=== PATIENT | female | born 1985 | race Hispanic/Latino ===

== ENCOUNTER 2016-07-25 12:53 | Emergency (ER) | payer SELFPAY ==
[2016-07-25 13:31] VITALS: O2SAT 97
[2016-07-25] MEDS ORDERED: IBUPROFEN 200 MG TAB PO ONE (13:43)
--- NOTE | 2016-07-25 13:45 | ED.PDOC ---
History of Present Illness - General Chief Complaint: ENT Problem Stated Complaint: Sore throat Time Seen by Provider: 07/25/16 13:27 Source: patient - History of Present Illness Initial Comments: Patient reports sore throat since yesterday associated with mild cough and congestion. Patient denies fevers,chills, sick contacts, or shortness of breath Timing/Duration: yesterday Severity: moderate EENT Location: throat Prearrival Treatment: other - pt gargled with peroxide Improving Factors: nothing Worsening Factors: nothing Associated Symptoms: nasal congestion/drainage Allergies/Adverse Reactions: Allergies NO KNOWN ALLERGY Allergy (Verified 07/25/16 13:25) Home Medications: Ambulatory Orders Amoxicillin 875 mg PO TID #20 tab 07/25/16 Ibuprofen 800 mg PO Q8HR PRN #30 tab 07/25/16 Vit W/ Ferrous Fumara [] 1 tab PO DAILY 07/25/16 metFORMIN HCL [Glucophage] 500 mg PO BID 07/25/16 Review of Systems - Review of Systems Constitutional: Denies: chills, fever Respiratory: States: cough. Denies: short of breath Cardiology: Denies: chest pain, palpitations Gastrointestinal/Abdominal: Denies: nausea, vomiting Past Medical History (General) - Patient Medical History Hx Stroke: No Hx Congestive Heart Failure: No Hx Diabetes: Yes Hx Renal Disease: No - Vaccination History Hx Tetanus, Diphtheria Vaccination: Yes Hx Influenza Vaccination: No Hx Pneumococcal Vaccination: No - Social History Hx Tobacco Use: No Hx Substance Use: No - Female History Patient is a Female of Child Bearing Age (10 -59 yrs old): Yes Hx Last Menstrual Period: 01/14/13 Patient : - unknown Expected Date of Delivery:: 02/23/15 Family Medical History - Family History Mother Family History: No Known Age (years): 43 Living Status: Still Living Hx Family Stroke: Yes - g-pa Hx Family Diabetes: Yes - g-pa Hx Family Cancer: Yes - g-ma Father Family History: Unknown Living Status: Still Living Hx Family Stroke: Yes Physical Exam - Physical Exam General Appearance: Alert, Comfortable, No apparent distress Eye Exam: bilateral normal Nasal Exam: normal inspection Throat Exam: normal mouth inspection, pharynx swelling, tonsillar swelling Neck: lymphadenopathy (R), lymphadenopathy (L) Cardiovascular/Respiratory: regular rate, rhythm, no M/R/G, normal breath sounds , no respiratory distress Abdominal Exam: non-tender, no organomegaly Neurologic: alert, normal mood/affect, oriented x 3 Skin Exam: normal color, warm/dry Progress - Results/Orders Results/Orders: 07/25/16 13:35 STREP A SCREEN CULTURE Stat Laboratory Results - last 24 hr 07/25/16 13:35 Group A Strep DNA Negative Departure - Departure Clinical Impression: Pharyngitis Time of Disposition: 14:46 Disposition: Discharge to Home or Self Care Condition: Good Departure Forms: ED Discharge - Pt. Copy, Patient Portal Self Enrollment Instructions: DI for Pharyngitis/Tonsillopharyngitis -- Adult Diet: resume usual diet Referrals: Hiro Haq MD [Primary Care Provider] - 1-2 Weeks Prescriptions: Ibuprofen 800 mg PO Q8HR PRN #30 tab PRN Reason: Pain Amoxicillin 875 mg PO TID #20 tab Home Medications: Ambulatory Orders Amoxicillin 875 mg PO TID #20 tab 07/25/16 Ibuprofen 800 mg PO Q8HR PRN #30 tab 07/25/16 Vit W/ Ferrous Fumara [] 1 tab PO DAILY 07/25/16 metFORMIN HCL [Glucophage] 500 mg PO BID 07/25/16
[2016-07-25] MEDS ORDERED: AMOXICILLIN TRIHYDRATE 875 MG TAB PO ONE (14:48)
[2016-07-25] MEDS ORDERED: AMOXICILLIN 500 MG CAP ONE (14:52)
[2016-07-25] MEDS ORDERED: AMOXICILLIN 500 MG CAP PO ONE (14:52)
[2016-07-25 14:57] VITALS: BP 117/82; TEMP 98.3
== END 2016-07-25 14:58 | disposition home or self-care (01) ==
LOC: ER 12:53
DX: J06.0 Acute laryngopharyngitis (principal)

== ENCOUNTER → 2017-04-03 | Outpatient (CLI) | payer OTHER | END | disposition home or self-care (01) | LOC: LAB.O 11:40 | PROVIDERS: ATTEND Obstetrics & Gynecology | DX: J11.1 Influenza due to unidentified influenza virus with other respiratory manifestations (principal) ==

== ENCOUNTER 2017-07-28 09:29 | Emergency (ER) | payer OTHER ==
[2017-07-28 09:44] VITALS: BP 123/90; TEMP 97.3; O2SAT 97
[2017-07-28] MEDS ORDERED: traMADol HCL 50 MG TAB PO ONE (09:58)
--- NOTE | 2017-07-28 10:01 | ED.PDOC ---
History of Present Illness - General Chief Complaint: Back Pain or Injury Stated Complaint: low back pain Time Seen by Provider: 07/28/17 09:58 Source: patient Exam Limitations: no limitations - History of Present Illness Initial Comments: the patient is a 31-year-old female presenting to the emergency room secondary to low back pain in the L2-L3 area that does give intermittent shooting pains down her legs. no weakness. No sensory changes. Symptoms are not always present. She does have obvious muscle spasm bilaterally surrounding that area. No incontinence. She did have a approximately 9 weeks ago and did have an epidural for that . She did report a similar shooting sensation with placement of the epidural initially. It did go away. Symptoms started on her this time 4 days ago. She is not having any fever. She is not having any headache. No postural symptoms. There are no skin changes. There is no step-off. No tenderness to palpation of the spinous processes. No evidence of trauma. She does have some obvious muscle spasm as stated above. She has been holding her baby a lot of course recently. This does have increased strain to the low back. Severity: moderate Improving Factors: nothing Worsening Factors: nothing Associated Symptoms: denies symptoms Allergies/Adverse Reactions: Allergies NO KNOWN ALLERGY Allergy (Verified 07/25/16 13:25) Home Medications: Ambulatory Orders Vit W/ Ferrous Fumara [] 1 tab PO DAILY 07/25/16 Uueajxjjeqpzh-Wyej-Kyfuntyyyv [Fioricet] 1 ea PO Q8H PRN #21 tab 07/28/17 predniSONE [Prednisone] 20 mg PO DAILY #4 tab 07/28/17 Review of Systems - Review of Systems Constitutional: States: no symptoms reported EENTM: States: no symptoms reported Respiratory: States: no symptoms reported Cardiology: States: no symptoms reported Gastrointestinal/Abdominal: States: no symptoms reported Genitourinary: States: no symptoms reported Musculoskeletal: States: see HPI Skin: States: no symptoms reported Neurological: States: see HPI Endocrine: States: no symptoms reported All other Systems: No Change from Baseline Past Medical History (General) - Patient Medical History Hx Stroke: No Hx Congestive Heart Failure: No Hx Diabetes: No Hx Renal Disease: No - Vaccination History Hx Tetanus, Diphtheria Vaccination: Yes Hx Influenza Vaccination: Yes Hx Pneumococcal Vaccination: No - Social History Hx Tobacco Use: No Hx Substance Use: No - Female History Patient is a Female of Child Bearing Age (10 -59 yrs old): Yes - 9 weeks post- Hx Last Menstrual Period: 01/14/13 Patient : - unknown Expected Date of Delivery:: 02/23/15 Family Medical History - Family History Mother Family History: No Known Age (years): 43 Living Status: Still Living Hx Family Stroke: Yes - g-pa Hx Family Diabetes: Yes - g-pa Hx Family Cancer: Yes - g-ma Father Family History: Unknown Living Status: Still Living Hx Family Stroke: Yes Physical Exam - Physical Exam General Appearance: Alert, Comfortable, No apparent distress Eye Exam: bilateral normal Ears, Nose, Throat: normal ENT inspection, normal pharynx Neck: full range of motion, supple Respiratory: no respiratory distress, no accessory muscle use Cardiovascular/Chest: normal peripheral pulses, no edema, other - regular rate Peripheral Pulses: radial,right: 2+, radial,left: 2+, dorsalis pedis,right: 2+, dorsalis pedis,left: 2+ Gastrointestinal/Abdominal: non tender, soft Rectal Exam: deferred Back Exam: no vertebral tenderness, muscle spasm, other - ee history of present illness Extremity: non-tender, normal inspection, no pedal edema, normal capillary refill 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 the fairly recent epidural may have made the symptoms a little worse. I do not believe she has any spinal fluid leak and certainly no clinical evidence of any meningitis exists. 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 She has been taking Motrin which is appropriate. I will add prednisone for the next 4 days and Fioricet for pain control. She needs to use topical heat. She also needs to do stretching exercises for the low back. She does need to work on gradual weight loss to help reduce stress on the low back. She needs to follow up with her primary care doctor in a couple of weeks. She needs to return to emergency room for any acute worsening. Departure - Departure Clinical Impression: Low back pain with sciatica Qualifiers: Chronicity: acute Back pain laterality: bilateral Sciatica laterality: bilateral sciatica Qualified Code(s): M54.42 - Lumbago with sciatica, left side ; M54.41 - Lumbago with sciatica, right side Disposition: Discharge to Home or Self Care Condition: Fair Departure Forms: ED Discharge - Pt. Copy, Patient Portal Self Enrollment Instructions: DI for Back Pain With Sciatica Diet: regular diet Activity: increase activity as tolerated Referrals: Hiro Haq MD [Primary Care Provider] - 1-2 Weeks Prescriptions: Abzhqkuruwrqk-Mjih-Axxlaprxop [Fioricet] 1 ea PO Q8H PRN #21 tab PRN Reason: Pain predniSONE [Prednisone] 20 mg PO DAILY #4 tab Home Medications: Ambulatory Orders Vit W/ Ferrous Fumara [] 1 tab PO DAILY 07/25/16 Flmpvuvwxnwkx-Gldw-Mesytfjwdo [Fioricet] 1 ea PO Q8H PRN #21 tab 07/28/17 predniSONE [Prednisone] 20 mg PO DAILY #4 tab 07/28/17 Additional Instructions: the patient is a 31-year-old female presenting with low back pain and muscle spasm starting at L2 and extending down to the L4 area bilaterally with intermittent episodes of sciatica bilaterally and obvious muscle spasm of the paraspinal muscles. the fairly recent epidural may have made the symptoms a little worse. I do not believe she has any spinal fluid leak and certainly no clinical evidence of any meningitis exists. 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 She has been taking Motrin which is appropriate. I will add prednisone for the next 4 days and Fioricet for pain control. She needs to use topical heat. She also needs to do stretching exercises for the low back. She does need to work on gradual weight loss to help reduce stress on the low back. She needs to follow up with her primary care doctor in a couple of weeks. She needs to return to emergency room for any acute worsening.
== END 2017-07-28 10:15 | disposition home or self-care (01) ==
LOC: ER 09:29
DX: M54.42 Lumbago with sciatica, left side (principal); M54.41 Lumbago with sciatica, right side